=== PATIENT | female | born 1935 | race Caucasian/White ===

== ENCOUNTER 2021-02-21 15:54 | Emergency (ER) | payer OTHER ==
[~2021-02-21 15:54] MED LIST: ASPIR 8181 MG PO; BACTRIM DS TAB1 EACH PO; BENTYL 10MG CAP10 MG PO; CANDESARTAN PO; COLACE 100MG C100 MG PO; CORTISPORIN OTI10 M1 EARLF; COZAAR50 MG PO; ELIQUIS5 MG PO; FISH OIL 1,0001 EAC1 PO; FISH OIL DR 1,1 EAC1 PO; FLONASE 0.05% N16 GM INH; FLOVENT DISKUS50 MCG INH; FOLIC ACID 1 MG1 MG PO; FOLIC ACID1 MG PO; GLIMEPIRIDE4 MG PO; LORAZEPAM1 MG PO; MECLIZINE HCL25 MG PO; METHOTREXATE2.5 MG PO; MIRALAX17 GM PO; MULTIVITAMINS1 EAC1 PO; PERCOCET 5-3251 EACH PO; PIOGLITAZONE HC30 MG PO; PROTONIX40 MG PO; ROBAXIN 750 MG750 MG PO; SIMVASTATIN40 MG PO; SYNTHROID 137137 MCG PO; TOPROL XL50 MG PO; TYLENOL WITH C1 EACH PO; VITAMIN B-122500 MCG SL; VITAMIN D50000 UNIT PO; ZITHROMAX250 MG PO
[2021-02-21 17:20] LABS: HEMOGLOBIN 12.2 gm/dl (12.3-15.3); RED BLOOD COUNT 3.67 M/UL (4.00-5.10); WHITE BLOOD COUNT 3.5 K/UL (4.5-11.0)
[2021-02-21 17:32] LABS: BUN/CREATININE RATIO 16 (0-10)
[2021-02-21] MEDS ORDERED: ZOFRAN ODT 4 MG4 MG PO (19:01)
== END 2021-02-21 19:35 | disposition home or self-care (01) ==
LOC: ER1 15:54
PROVIDERS: Family Medicine
DX: M06.9 Rheumatoid arthritis, unspecified (principal); E11.65 Type 2 diabetes mellitus with hyperglycemia; E87.1 Hypo-osmolality and hyponatremia; D72.819 Decreased white blood cell count, unspecified
CPT/HCPCS: 80053; 81001; 82550; 82553; 83874; 83880; 84439; 84443; 84484; 85025; 87086; 93005; 96374; 99285; J2405

== ENCOUNTER → 2021-07-27 | Outpatient (CLI) | payer OTHER ==
[~2021-07-27] MED LIST changes: +ZOFRAN ODT 4 MG4 MG PO
== END ==
LOC: EXRD 09:25
DX: M25.511 Pain in right shoulder (principal); M19.011 Primary osteoarthritis, right shoulder
CPT/HCPCS: 73030